=== PATIENT | male | born 1990 | race Caucasian/White ===

== ENCOUNTER 2020-06-19 13:26 | Emergency (ER) | payer BC ==
[2020-06-19] MEDS ORDERED: Ketorolac Tromethamine 30 MG/ML VIAL ONE (14:22)
[2020-06-19] MEDS ORDERED: Morphine 4 MG/ML VIAL ONE ×2 (14:37→14:44)
[2020-06-19] MEDS ORDERED: Dexamethasone 10 MG/ML VIAL ONE (14:37)
--- NOTE | 2020-06-19 15:59 | RAD ---
LUMBAR SPINE 3 VIEWS: Date: 06/19/2020 HISTORY: Back pain. FINDINGS: Disc spaces are adequately preserved. No evidence for acute fracture or dislocation. No malalignment. No focal bone lesion. IMPRESSION: Unremarkable lumbar spine 3 views. POS: RRE
== END 2020-06-19 15:48 | disposition home or self-care (01) ==
LOC: ERS 13:26
DX: M54.5 Low back pain (principal); W18.30XA Fall on same level, unspecified, initial encounter; F17.220 Nicotine dependence, chewing tobacco, uncomplicated
CPT/HCPCS: 72100; 96372; J1100; J1885; J2270

== ENCOUNTER 2025-09-11 12:41 | Observation (INO) | payer BC, OTHER ==
[2025-09-11] MEDS ORDERED: Ondansetron PF 4 MG/2 ML Vial IVP PRN (13:49)
[2025-09-11] MEDS ORDERED: Communication Order-Pharmacy FS SCH (14:00)
[2025-09-11] MEDS: HYDROcodone/Acetaminophen 5/325 mg Tablet PO PRN (15:47)
[2025-09-11] MEDS: TETANUS, DIPHTHERIA TOX,ADULT (TDVAX) 0.5 ML VIAL IM ONE (15:49)
[2025-09-11 16:00] VITALS: BMI 25.8
[2025-09-12 04:17] VITALS: BP 135/81; TEMP 97.3
[2025-09-12] MEDS ORDERED: Ketorolac Tromethamine 30 MG (1 mL) VIAL ONE (13:25)
[2025-09-12] MEDS ORDERED: PROPOFOL 200 MG/20 ML VIAL ONE (13:25)
[2025-09-12] MEDS ORDERED: Ondansetron PF 4 MG/2 ML Vial ONE (13:30)
[2025-09-12] MEDS: FLU (Fluarix Triv) 25-26 (6MOS UP)/PF 45 MCG/0.5 ML Syringe IM ONE (15:05)
== END 2025-09-12 17:24 | disposition home or self-care (01) ==
LOC: SURG A 13:22
PROVIDERS: ADMIT Orthopaedic Surgery; ATTEND Orthopaedic Surgery
DX: S68.127A Partial traumatic metacarpophalangeal amputation of left little finger, initial encounter (principal); F17.220 Nicotine dependence, chewing tobacco, uncomplicated; Z23 Encounter for immunization; W27.8XXA Contact with other nonpowered hand tool, initial encounter
CPT/HCPCS: 90471; 90715; 96365; 96374; 96375; 96376; A6223; G0378; J1100; J1885; J2250; J2272; J2405; J2704; J3010